=== PATIENT | male | born 1965 | race Caucasian/White ===

== ENCOUNTER 2017-04-28 18:35 | Emergency (ER) | payer OTHER ==
[~2017-04-28] VITALS: Ht 182.9 cm; Wt 81.7 kg
[2017-04-28] MEDS ORDERED: OMEPRAZOLE 20 M20 M1 (18:57)
[2017-04-28 20:03] VITALS: BP 142/100
== END 2017-04-28 20:04 | disposition home or self-care (01) ==
LOC: M.ERS 18:35
DX: J02.9 Acute pharyngitis, unspecified (principal); I10 Essential (primary) hypertension